=== PATIENT | male | born 1970 | race Caucasian/White ===

== ENCOUNTER 2019-02-12 21:38 | Emergency (ER) | payer OTHER, SELFPAY ==
[2019-02-12 21:51] VITALS: BP 161/91; PULSE 59; RESP 15; TEMP 36.6; O2SAT 100; BMI 30.1
[2019-02-12] MEDS: diazePAM 5 MG TABLET PO (22:16)
[2019-02-12] MEDS: predniSONE 20 MG TABLET 40 MG PO (22:16)
[2019-02-12] MEDS: HYDROCODONE/ACET 5/325 PREPACK 1 BOTTLE MISC (22:16)
--- NOTE | 2019-02-12 22:16 | ED_ITS ---
HPI - Back Pain/Injury General Chief Complaint: Back Pain/Injury Stated Complaint: LEFT LEG PAIN UNABLE TO WALK Time Seen by Provider: 02/12/19 21:40 Source: patient and family Mode of arrival: ambulatory Limitations: no limitations History of Present Illness HPI Narrative: 48-year-old male former smoker presents with a chief complaint of worsening of his known lumbar pain with sciatica. He has had trouble off and on for quite some time and in fact has been going to physical therapy. He has had no prescriptions in many years and this is been cross reference with the [place] prescription service web site. Patient states that he was in his normal state of health until this morning in the bathroom he stepped awkwardly and felt a sudden and severe pain in his lower back with radiation down his left leg. He has some tingling on the top of his left foot but denies any weakness. He has no trouble with bowel or bladder control. He has had no fever or chills and denies any direct trauma. He takes no blood thinners. He has had no foot drop MD Complaint: back pain Onset (ago): hour(s) Duration: constant Similar Symptoms Previously: Yes Location: lumbar spine Severity: moderate Quality: burning, sharp and stabbing Radiation: left leg Relieving factors: immobilization Exacerbating factors: movement and walking Context: bending Associated symptoms: difficulty walking Related Data Previous Rx's Medication Instructions Recorded diazepam [Valium] 5 mg PO BID-QID PRN #10 tab 02/12/19 hydrocodone-acetaminophen 1 tab PO Q4-6H PRN #10 tab 02/12/19 ketorolac 10 mg PO Q6H PRN #14 tab 02/12/19 prednisone 20 mg PO DAILY #5 tab 02/12/19 Allergies Allergy/AdvReac Type Severity Reaction Status Date / Time tramadol Allergy Verified 02/12/19 21:51 Review of Systems Constitutional Denies chills, Denies fever(s), Denies lethargy and Denies weakness Eyes Denies change in vision, Denies eye discharge, Denies irritation and Denies loss of vision ENT Ears, Nose, Mouth, and Throat: Denies change in voice, Denies neck pain and Denies sore throat Cardiovascular Denies chest pain, Denies irregular heart rhythm, Denies lightheadedness, Denies palpitations, Denies dyspnea, Denies dyspnea on exertion and Denies orthopnea Respiratory Denies cough, Denies dyspnea, Denies dyspnea on exertion and Denies wheezing Gastrointestinal Gastrointestinal: Denies abdominal pain, Denies change in bowel habits, Denies diarrhea, Denies nausea and Denies vomiting Genitourinary Denies hematuria, Denies flank pain, Denies urinary incontinence and Denies urinary urgency Musculoskeletal Reports back pain and Denies neck pain Integumentary/Breasts Denies pruritus, Denies erythema, Denies rash and Denies wounds Neurologic Denies confusion, Denies loss of vision and Denies weakness Psychiatric Denies anxiety, Denies confusion, Denies depression, Denies homicidal ideation and Denies suicidal ideation Endocrine Denies palpitations Hematologic/Lymphatic Denies easy bruising Allergic/Immunologic Denies wheezing PFSH Social History Smoking Status: Unknown if ever smoked Social History Smoking Status: Unknown if ever smoked Exam Narrative Exam Narrative: GENERAL: 48M appears stated age, obviously quite uncomfortable laying on his side with left leg extended period HEAD: Atraumatic. Normocephalic. No temporal or scalp tenderness. EYES: Pupils equal round and reactive. Extraocular motions intact. No scleral icterus. No injection or drainage. ENT: Nose without bleeding, purulent drainage or septal hematoma. Throat without erythema, tonsillar hypertrophy or exudate. Uvula midline. Airway patent. NECK: Trachea midline. No JVD or lymphadenopathy. Supple, nontender, no meningeal signs. CARDIOVASCULAR: Regular rate and rhythm without murmurs, gallops, or rubs. RESPIRATORY: Clear to auscultation. Breath sounds equal bilaterally. No wheezes, rales, or rhonchi. GASTROINTESTINAL: Abdomen soft, non-tender, nondistended. No hepato-splen omegaly, or palpable masses. No guarding. EXTREMITIES: No clubbing, cyanosis, or edema. No joint tenderness, effusion, or edema noted. BACK: strapping machine tender but free of any obvious external abnormalities. Patient exam notes decreased range of motion and muscle spasm, but no CVA tenderness, or vertebral point tenderness. There are no symptoms of cauda equina such as saddle anesthesia, and decreased reflexes, decreased sensation or strength. NEURO: AOx3. SKIN: No rash or erythema. Initial Vital Signs Initial Vital Signs: Vital Signs Temperature 97.8 F 02/12/19 21:51 Pulse Rate 59 L 02/12/19 21:51 Respiratory Rate 15 02/12/19 21:51 Blood Pressure 161/91 H 02/12/19 21:51 Pulse Oximetry 100 02/12/19 21:51 Course Orders Ordered: Discontinued Medications Hydrocodone Bitart/Acetaminophen (Vicodin Prepack) 1 bottle MISC SEEINSTR ONE Stop: 02/12/19 22:06 Last Admin: 02/12/19 22:16 Dose: 1 bottle Diazepam (Valium) 5 mg PO NOW ONE Stop: 02/12/19 22:06 Last Admin: 02/12/19 22:16 Dose: 5 mg Ketorolac Tromethamine (Toradol) 60 mg IM NOW ONE Stop: 02/12/19 22:06 Last Admin: 02/12/19 22:17 Dose: 60 mg Prednisone (Deltasone) 40 mg PO NOW ONE Stop: 02/12/19 22:06 Last Admin: 02/12/19 22:16 Dose: 40 mg Vital Signs - 8 hr 02/12/19 21:51 02/12/19 22:46 Temperature 97.8 F Pulse Rate 59 L 65 Respiratory Rate 15 Blood Pressure 161/91 H 120/69 Pulse Oximetry 100 100 MDM - Back Pain/Injury MDM Narrative Medical decision making narrative: Multiple etiologies for patient's symptoms considered including: [Multiple etiologies of back pain considered including; Epidural abscess, cauda equina, mass occupying lesion, and other considered] Patient's symptoms improved or duration of stay with above-stated therapies. Findings and discharge diagnosis discussed with patient/family followed by verbalization of understanding Return precautions discussed with patient/family whom verbalize understanding. Discharge Plan Departure Patient Disposition: Home Clinical Impression: Lumbar radiculopathy Sciatica Qualifiers: Laterality: left Qualified Code(s): M54.32 - Sciatica, left side Discharge Date/Time: 02/12/19 22:47 Interventions: ED Discharge Assessment Last Done: 02/12/19 22:46 Instructions: DI for Back Pain With Sciatica Activity Restrictions/Additional Instructions: You have been prescribed narcotic medications. While on these medications you cannot drive or operate heavy machinery. Additionally you cannot sign legal documents or perform any duties such as this. 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 Please understand that we cannot provide further refills of narcotics or controlled substances through the ED and your pain management will need to be through your Primary Care Provider *You have been diagnosed with [acute on chronic lumbar pain with left-sided sciatica] *What to do: *Take medications as directed *Follow up with your primary care provider in 2-3 days, call for an appointment. Let them know you were seen in the Emergency Department and that we ask that you be seen in follow up *Return to ER if you should have any new, worsening or concerning symptoms, such as [worsening pain, loss of control of her bowel or bladder, weakness in her leg or any other bothersome symptoms] Prescriptions: New hydrocodone-acetaminophen 5-325 mg tablet 1 tab PO Q4-6H PRN (Reason: pain) Qty: 10 RF: 0 prednisone 20 mg tablet 20 mg PO DAILY Qty: 5 RF: 0 ketorolac 10 mg tablet 10 mg PO Q6H PRN (Reason: pain) Qty: 14 RF: 0 diazepam [Valium] 5 mg tablet 5 mg PO BID-QID PRN (Reason: muscle spasm) Qty: 10 RF: 0
[2019-02-12] MEDS: KETOROLAC 60 MG/2 ML VIAL IM (22:17)
[2019-02-12 22:46] VITALS: BP 120/69; PULSE 65; O2SAT 100
== END 2019-02-12 22:47 | disposition home or self-care (01) ==
PROVIDERS: Emergency Provider Emergency Medicine
DX: M54.16 Radiculopathy, lumbar region (principal); M54.30 Sciatica, unspecified side; M79.605 Pain in left leg
CPT/HCPCS: 96372; 99282; 99283; J1885

== ENCOUNTER 2019-02-20 13:12 | Emergency (ER) | payer OTHER, SELFPAY ==
[2019-02-20 13:20] VITALS: BP 143/102; PULSE 70; RESP 18; TEMP 36.9; O2SAT 98; BMI 30.1
--- NOTE | 2019-02-20 16:19 | ED.EXTPRO ---
HPI - Extremity Problem General Chief complaint: Extremity Problem,Nontraumatic Stated complaint: left leg numbness/tingling/pain x8 days Time Seen by Provider: 02/20/19 16:18 Source: patient, family and old records reviewed ([employer] [facility], CT reviewed patient arrived with in hand) Mode of arrival: wheelchair Limitations: no limitations History of Present Illness HPI Narrative: 48-year-old male comes in with complaint of back and hip pain. Patient states started about 8 days ago. With back pain radiating into left lower extremity. There has been some numbness, he did days no weakness but states that it is painful to move the lower extremity as well some tingling particularly over the left calf. Patient denies any loss of bowel or bladder control. Patient has a remote history of a infection in his left hip. Patient states that he went to surgery had drainage and was on IV antibiotics with a PICC line for a period of time he states that this does not feel the same but he does have some pain in hip. He states he had a CT scan of the hip recently which was read as negative. Patient denies any fevers. He has occasionally had some nausea. No vomiting. No other chest pain, shortness of breath abdominal pain. Patient states that the pain is sort of in the back buttock area more on the left. Patient has pain with ambulation. He states that he noticed after getting out of bed when morning. He does not recall any specific trauma or injury or of the sedative motion or heavy lifting. Hugo to his doctor's note this is typical for him and he has not been wanting to work been using a wheelchair at home, he does not typically take pain medications has been require them. Related Data Home Medications Medication Instructions Recorded Confirmed baclofen 10 mg PO TID 02/20/19 02/20/19 cholecalciferol (vitamin D3) 4,000 unit PO DAILY 02/20/19 02/20/19 [Vitamin D3] krill oil 1 tab PO DAILY 02/20/19 02/20/19 loratadine 1 tab PO DAILY 02/20/19 02/20/19 losartan 1 tab PO DAILY 02/20/19 02/20/19 metoprolol succinate [Toprol XL] 1 tab PO DAILY 02/20/19 02/20/19 omeprazole 2 tab PO DAILY 02/20/19 02/20/19 prednisone 40 mg PO DAILY 02/20/19 02/20/19 Previous Rx's Medication Instructions Recorded diazepam [Valium] 5 mg PO BID-QID PRN #10 tab 02/12/19 Allergies Allergy/AdvReac Type Severity Reaction Status Date / Time tramadol Allergy Verified 02/20/19 13:19 Review of Systems Review of Systems ROS Unobtainable: All systems reviewed & are unremarkable except as noted in HPI and below Constitutional Denies chills, Denies fever(s), Denies lethargy and Denies weakness Gastrointestinal Gastrointestinal: Denies abdominal pain, Denies change in bowel habits, Denies fecal incontinence, Denies diarrhea, Denies nausea and Denies vomiting Genitourinary Denies hematuria, Denies flank pain, Denies urinary frequency, Denies urinary incontinence and Denies urinary urgency Musculoskeletal Reports back pain, Reports arthralgias (Left hip), Denies joint swelling, Reports limited range of motion, Denies muscle weakness, Reports numbness (Left calf) and Reports tingling Integumentary/Breasts Denies lesions, Denies non-healing lesions, Denies erythema and Denies rash Neurologic Denies lack of coordination, Denies focal weakness, Reports numbness (Left calf), Reports tingling and Denies weakness [facility] Medical History (Updated 02/20/19 @ 18:06 by Anabel Alvarze DO) Septic arthritis of hip (Resolved) Social History Smoking Status: Unknown if ever smoked Social History (Updated 02/20/19 @ 16:47 by Anabel Alvarez DO) Smoking Status: Unknown if ever smoked alcohol intake: former substance use type: does not use Exam Narrative Exam Narrative: GENERAL: Alert and oriented x three, well-nourished, well-appearing male in moderate distress. HEENT: Head normocephalic, atraumatic, EOMI, pupils reactive, face symmetric, moist mucous membranes NECK: Supple, full range of motion CARDIOVASCULAR: Regular rate and rhythm without murmurs, rubs or gallops. RESPIRATORY: Breath sounds equal bilaterally, no wheezes rales or rhonchi. ABDOMEN: Soft, nontender. Normoactive bowel sounds all 4 quadrants. No guarding or rebound, rigidity, no mass : No CVA tenderness BACK: No cervical, thoracic vertebral point tenderness. Patient has a vertebral tenderness starting at the L2 region and 3 each level down to L5-S1. Patient has decreased range of motion, patient prefers to lay on his side. Patient's gait is not tested No saddle anesthesia. Muscle strength is 5/5 in lower extremities, DTRs are 2/4 right lower extremities, 1/4 left lower extremitiey. Dorsalis pedis and tibialis pulses are 2+ and lower extremities. Sensation is intact in the lower extremities, patient is uncomfortable with palpation with light touch over lower foot on left. EXTREMITIES: Normal range of motion, mildly tender over left hip, no effusion, no erythema, no clubbing or edema. Neurovascularly intact, see above. NEUROLOGICAL: Cranial nerves II through XII grossly intact. Moving all extremities SKIN: Warm, dry, no petechiae, no rashes or lesions. Initial Vital Signs Initial Vital Signs: Vital Signs Temperature 98.5 F 02/20/19 13:20 Pulse Rate 70 02/20/19 13:20 Respiratory Rate 18 02/20/19 13:20 Blood Pressure 143/102 H 02/20/19 13:20 Pulse Oximetry 98 02/20/19 13:20 Course Orders Ordered: ED Orders 02/20/19 16:41 CT lumbar spine wo con Stat CT thoracic spine wo con Stat 02/20/19 16:51 Basic Metabolic Panel Stat C-Reactive Protein Quant Stat Complete Blood Count AUTO DIFF Stat Erythrocyte Sedimentation Rate Stat Discontinued Medications Hydromorphone HCl (Dilaudid) 1 mg IV NOW ONE Stop: 02/20/19 18:17 Last Admin: 02/20/19 18:26 Dose: 1 mg Morphine Sulfate (Morphine) 4 mg IV NOW ONE Stop: 02/20/19 16:42 Last Admin: 02/20/19 17:12 Dose: 4 mg Vital Signs - 8 hr 02/20/19 13:20 02/20/19 16:45 02/20/19 18:26 Temperature 98.5 F Pulse Rate 70 64 66 Respiratory Rate 18 17 15 Blood Pressure 143/102 H Blood Pressure [Left Arm] 140/90 144/99 H Pulse Oximetry 98 98 98 MDM - Extremity (Nontraumatic) Lab Data Result diagrams: 02/20/19 16:51 02/20/19 16:51 Lab Results 02/20/19 02/20/19 Range/Units 16:51 16:51 WBC 6.6 (4.5-11.0) X10^3/uL RBC 5.74 (4.5-5.9) X10^6/uL Hgb 17.4 (13.5-17.5) g/dL Hct 51.8 (41-53) % MCV 90.2 (80-100) fL MCH 30.2 (26-34) PG MCHC 33.5 (30-36) % RDW 13.2 (11.6-14.8) % Plt Count 221 (150-400) X10^3/uL Neut % (Auto) 53.9 (50-75) % Lymph % (Auto) 35.8 (25-40) % Tripp % (Auto) 7.9 (3-14) % Eos % (Auto) 2.0 (2-4) % Baso % (Auto) 0.4 (0-2) % Neut # (Auto) 3600 (2475-9504) /uL Lymph # (Auto) 2400 (1306-1337) /uL Tripp # (Auto) 500 (0-900) /uL Eos # (Auto) 100 (0-450) /uL Baso # (Auto) 0 (0-100) /uL ESR 7 (0-15) MM/HR Sodium 142 (137-145) mmol/L Potassium 4.0 (3.4-5.1) mmol/L Chloride 102 (98-107) mmol/L Carbon Dioxide 30 (22-32) mmol/L BUN 16 (9-20) mg/dL Creatinine 1.10 (0.66-1.25) mg/dL Estimated GFR > 60.0 (>60) mL/min BUN/Creatinine Ratio 14.5 (6-22) Glucose 100 (70-100) mg/dL Calcium 9.0 (8.4-10.2) mg/dL C-Reactive Protein < 0.5 (<1.0) mg/dL Imaging Data T spine CT: Radiologist's impression: [address] [address] [address] Scan Report Signed Patient: Edd Park LMR#: [id number] : 1970Acct:[id number] Age/Sex: 48 / MDate of Service: 02/20/19 Loc: ED Accession Number: [id number] Procedure: CT thoracic spine wo con Ordering Provider: Anabel Alvarez D.O. PROCEDURE: CT THORACIC SPINE WO CON INDICATIONS: L2-L5 pain, hx of septic hip in past. TECHNIQUE: Noncontrast 3 mm thick sections acquired through the region of interest in the thoracic spine. Sagittal and coronal reformats were then constructed. For radiation dose reduction, the following was used: automated exposure control. COMPARISON: [facility], CT, CT LUMBAR SPINE WO CON, 02/20/2019, 16:55. FINDINGS: Image quality: Excellent. Bones: There is normal overall bony alignment. No acute vertebral body compression fractures. No suspicious sclerotic or lytic bony lesions. Central spinal canal is of normal overall caliber. Mild lower thoracic spine degenerative changes are seen. Soft tissues: No paravertebral masses or hematomas. Visualized posteromedial lungs appear clear. IMPRESSION: Mild degenerative changes, without suspicious abnormalities. Dictated by: Jani Segovia M.D. on 02/20/2019 at 16:34 Approved by: Jani Segovia M.D. on 02/20/2019 at 16:[address] [facility] [address]: Radiologist's impression: Edd Park 48 M 1970 [place] [address] CT Scan Report Signed Patient: Edd Park LMR#: [id number] : 1970Acct:[id number] Age/Sex: 48 / MDate of Service: 02/20/19 Loc: ED Accession Number: [id number] Procedure: CT lumbar spine wo con Ordering Provider: Anabel Alvarez D.O. PROCEDURE: CT LUMBAR SPINE WO CON INDICATIONS: lumbar pain, L2-L5, no trauma, hx septic hip TECHNIQUE: Noncontrast 3 mm thick sections acquired from the T12 level to the sacrum. Sagittal and coronal reformats were constructed. For radiation dose reduction, the following was used: automated exposure control. COMPARISON: [facility], CT, CT THORACIC SPINE WO CON, 02/20/2019, 16:55. FINDINGS: Image quality: Excellent. Bones: No acute vertebral body compression fractures. No suspicious lytic or blastic bony lesions. Central spinal caliber is of normal overall caliber. Minimal levoconvex scoliotic curvature is seen. Minimally displaced pars defects are seen at the L2 level, yet without related anterolisthesis at the L2-L3 level. Pars defects are also seen at L5, with associated grade 1 anterolisthesis at L5-S1. T12-L1: Normal. L1-L2: Normal. L2-L3: The disc height is well-preserved. Moderate disc bulge is seen, which is eccentric to the left. There is moderate bilateral neural foraminal narrowing seen, left greater than right. [id number] central canal narrowing is seen. L3-L4: The disc height is well-preserved. Mild generalized disc bulge is seen. Mild bilateral neural foraminal narrowing is seen. L4-L5: Mild loss of disc height is seen. Moderate generalized disc bulge is seen. Moderate bilateral neural foraminal narrowing is seen, left worse than right. Moderate central canal narrowing is seen. L5-S1: Grade 1 anterolisthesis is seen at this level. Moderate loss of disc height is seen. Mild facet hypertrophy is seen. There is moderate to severe bilateral neural foraminal narrowing seen. There is a degree of compression seen upon the exiting nerve roots. Moderate central canal narrowing is seen. Soft tissues: No retroperitoneal masses or hematomas. Visualized aorta is normal in caliber. A mild periumbilical hernia is seen, containing fat. 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 There is moderate loss of disc height at this level. There is also moderate to severe bilateral neural foraminal narrowing seen and compression upon the exiting bilateral L5 nerve roots. No suspicious abnormalities are seen of the endplates. If there is strong clinical concern for discitis or osteomyelitis, then please consider a dedicated lumbar spine MRI, performed without and with contrast for further evaluation (assuming that there is no contraindication). Pars defects are also seen at the L2 level, without associated anterolisthesis of L2-L3. Multiple levels of degenerative change are seen, which are more prominent than would be expected for a patient of this age. Incidental note is made of: Fat containing periumbilical hernia Dictated by: Jani Segovia M.D. on 02/20/2019 at 16:38 Approved by: Jani Segovia M.D. on 02/20/2019 at 16:44 [facility] Narrative Medical decision making narrative: I do not have any MRI availability today. The patient does him some lower lumbar tenderness also close in the thoracic spine. With patient's history of septic arthritis I would give it at minimum CT of the thoracic and lumbar spine. MRI would be purple but is unavailable. I included CBC, BMP, ESR and CRP in lab work. Patient did have a CT of his hip which is mildly tender but he is much more tender on his lower back. If his ESR and CRP are elevated with normal CT imaging of the lower back then may redirected to further evaluation or MRI. Morphine was ordered for pain, patient states he is allergic to tramadol and gets hives but states he does fine with other narcotics. Dr. Parra from [facility] called report to charge nurse, I spoke with Dr. Parra we reviewed patient's lab work which included CBC, BMP ESR and CRP which were all normal also I was unable to obtain MRI but CT of T and L-spine showed some mild chronic changes in the T-spine and L-spine changes actually looked very similar to findings on prior MRI from December 01, 2018. Was able to obtain report from [facility]. I reviewed these with Dr. Coughlin. She states they can get an MRI as an outpatient she can go and put the order in so this could be noted shortly. Patient and I discussed at this time will be able to facilitate an MRI faster the patient would likely be more comfortable at home he does not have any red flag symptoms at this time so plan for follow-up. She also has a pain management referral. Discharge Plan Departure Patient Disposition: Home Clinical Impression: Lumbar radiculopathy Discharge Date/Time: 02/20/19 18:42 Interventions: ED Discharge Assessment Last Done: 02/20/19 18:42 Instructions: DI for Lumbar Radiculopathy Activity Restrictions/Additional Instructions: Follow-up with Dr. Parra on Friday. Call the office for an appointment. Dr. Parra is also planning on ordering your MRI to faciliate further workup this week. You may continue medications as prescribed. You can take gabapentin, you may increase from 1 tablet three times daily to two tablets three times daily but this can be increased with you and Dr. Coughlin. You may take oxycodone in combination with the ketorolac or meloxicam. Return to the emergency department for fevers greater than 100.4, rapidly increasing pain, loss of bowel or bladder control or urinary retention, saddle anesthesia or loss of sensation in the groin new weakness, inability to lift or move your extremity or other new or concerning symptoms. Prescriptions: No Action diazepam [Valium] 5 mg tablet 5 mg PO BID-QID PRN (Reason: muscle spasm) Qty: 10 RF: 0 metoprolol succinate [Toprol XL] 50 mg tablet extended release 24 hr 1 tab PO DAILY RF: 0 baclofen 10 mg Tablet 10 mg PO TID RF: 0 losartan 25 mg tablet 1 tab PO DAILY RF: 0 omeprazole 20 mg capsule,delayed release(DR/EC) 2 tab PO DAILY RF: 0 loratadine 10 mg tablet 1 tab PO DAILY RF: 0 cholecalciferol (vitamin D3) [Vitamin D3] 2,000 unit Capsule 4,000 unit PO DAILY RF: 0 krill oil 500 mg Capsule 1 tab PO DAILY RF: 0 prednisone 20 mg tablet 40 mg PO DAILY RF: 0
--- NOTE | 2019-02-20 16:41 | DI.CT.S_ITS ---
PROCEDURE: CT LUMBAR SPINE WO CON INDICATIONS: lumbar pain, L2-L5, no trauma, hx septic hip TECHNIQUE: Noncontrast 3 mm thick sections acquired from the T12 level to the sacrum. Sagittal and coronal reformats were constructed. For radiation dose reduction, the following was used: automated exposure control. COMPARISON: [facility], CT, CT THORACIC SPINE WO CON, 02/20/2019, 16:55. FINDINGS: Image quality: Excellent. Bones: No acute vertebral body compression fractures. No suspicious lytic or blastic bony lesions. Central spinal caliber is of normal overall caliber. Minimal levoconvex scoliotic curvature is seen. Minimally displaced pars defects are seen at the L2 level, yet without related anterolisthesis at the L2-L3 level. Pars defects are also seen at L5, with associated grade 1 anterolisthesis at L5-S1. T12-L1: Normal. L1-L2: Normal. L2-L3: The disc height is well-preserved. Moderate disc bulge is seen, which is eccentric to the left. There is moderate bilateral neural foraminal narrowing seen, left greater than right. [id number] central canal narrowing is seen. L3-L4: The disc height is well-preserved. Mild generalized disc bulge is seen. Mild bilateral neural foraminal narrowing is seen. L4-L5: Mild loss of disc height is seen. Moderate generalized disc bulge is seen. Moderate bilateral neural foraminal narrowing is seen, left worse than right. Moderate central canal narrowing is seen. L5-S1: Grade 1 anterolisthesis is seen at this level. Moderate loss of disc height is seen. Mild facet hypertrophy is seen. There is moderate to severe bilateral neural foraminal narrowing seen. There is a degree of compression seen upon the exiting nerve roots. Moderate central canal narrowing is seen. Soft tissues: No retroperitoneal masses or hematomas. Visualized aorta is normal in caliber. A mild periumbilical hernia is seen, containing fat. 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 There is moderate loss of disc height at this level. There is also moderate to severe bilateral neural foraminal narrowing seen and compression upon the exiting bilateral L5 nerve roots. No suspicious abnormalities are seen of the endplates. If there is strong clinical concern for discitis or osteomyelitis, then please consider a dedicated lumbar spine MRI, performed without and with contrast for further evaluation (assuming that there is no contraindication). Pars defects are also seen at the L2 level, without associated anterolisthesis of L2-L3. Multiple levels of degenerative change are seen, which are more prominent than would be expected for a patient of this age. Incidental note is made of: Fat containing periumbilical hernia Dictated by: Jani Segovia M.D. on 02/20/2019 at 16:38 Approved by: Jani Segovia M.D. on 02/20/2019 at 16:44
--- NOTE | 2019-02-20 16:41 | DI.CT.S_ITS ---
PROCEDURE: CT THORACIC SPINE WO CON INDICATIONS: L2-L5 pain, hx of septic hip in past. TECHNIQUE: Noncontrast 3 mm thick sections acquired through the region of interest in the thoracic spine. Sagittal and coronal reformats were then constructed. For radiation dose reduction, the following was used: automated exposure control. COMPARISON: [facility], CT, CT LUMBAR SPINE WO CON, 02/20/2019, 16:55. FINDINGS: Image quality: Excellent. Bones: There is normal overall bony alignment. No acute vertebral body compression fractures. No suspicious sclerotic or lytic bony lesions. Central spinal canal is of normal overall caliber. Mild lower thoracic spine degenerative changes are seen. Soft tissues: No paravertebral masses or hematomas. Visualized posteromedial lungs appear clear. IMPRESSION: Mild degenerative changes, without suspicious abnormalities. Dictated by: Jani Segovia M.D. on 02/20/2019 at 16:34 Approved by: Jani Segovia M.D. on 02/20/2019 at 16:37
[2019-02-20 16:45] VITALS: BP 140/90; PULSE 64; RESP 17; O2SAT 98
--- NOTE | 2019-02-20 16:51 | ED_ITS ---
HPI - Extremity Problem General Chief complaint: Extremity Problem,Nontraumatic Stated complaint: left leg numbness/tingling/pain x8 days Time Seen by Provider: 02/20/19 16:18 Source: patient, family and old records reviewed ([employer] [facility], CT reviewed patient arrived with in hand) Mode of arrival: wheelchair Limitations: no limitations History of Present Illness HPI Narrative: 48-year-old male comes in with complaint of back and hip pain. Patient states started about 8 days ago. With back pain radiating into left lower extremity. There has been some numbness, he did days no weakness but states that it is painful to move the lower extremity as well some tingling particularly over the left calf. Patient denies any loss of bowel or bladder control. Patient has a remote history of a infection in his left hip. Patient states that he went to surgery had drainage and was on IV antibiotics with a PICC line for a period of time he states that this does not feel the same but he does have some pain in hip. He states he had a CT scan of the hip recently which was read as negative. Patient denies any fevers. He has occasionally had some nausea. No vomiting. No other chest pain, shortness of breath abdominal pain. Patient states that the pain is sort of in the back buttock area more on the left. Patient has pain with ambulation. He states that he noticed after getting out of bed when morning. He does not recall any specific trauma or injury or of the sedative motion or heavy lifting. [place] to his doctor's note this is typical for him and he has not been wanting to work been using a wheelchair at home, he does not typically take pain medications has been require them. Related Data Home Medications Medication Instructions Recorded Confirmed baclofen 10 mg PO TID 02/20/19 02/20/19 cholecalciferol (vitamin D3) 4,000 unit PO DAILY 02/20/19 02/20/19 [Vitamin D3] krill oil 1 tab PO DAILY 02/20/19 02/20/19 loratadine 1 tab PO DAILY 02/20/19 02/20/19 losartan 1 tab PO DAILY 02/20/19 02/20/19 metoprolol succinate [Toprol XL] 1 tab PO DAILY 02/20/19 02/20/19 omeprazole 2 tab PO DAILY 02/20/19 02/20/19 prednisone 40 mg PO DAILY 02/20/19 02/20/19 Previous Rx's Medication Instructions Recorded diazepam [Valium] 5 mg PO BID-QID PRN #10 tab 02/12/19 Allergies Allergy/AdvReac Type Severity Reaction Status Date / Time tramadol Allergy Verified 02/20/19 13:19 Review of Systems Review of Systems ROS Unobtainable: All systems reviewed & are unremarkable except as noted in HPI and below Constitutional Denies chills, Denies fever(s), Denies lethargy and Denies weakness Gastrointestinal Gastrointestinal: Denies abdominal pain, Denies change in bowel habits, Denies fecal incontinence, Denies diarrhea, Denies nausea and Denies vomiting Genitourinary Denies hematuria, Denies flank pain, Denies urinary frequency, Denies urinary incontinence and Denies urinary urgency Musculoskeletal Reports back pain, Reports arthralgias (Left hip), Denies joint swelling, Reports limited range of motion, Denies muscle weakness, Reports numbness (Left calf) and Reports tingling Integumentary/Breasts Denies lesions, Denies non-healing lesions, Denies erythema and Denies rash Neurologic Denies lack of coordination, Denies focal weakness, Reports numbness (Left calf), Reports tingling and Denies weakness [facility] Medical History (Updated 02/20/19 @ 18:06 by Anabel Alvarez DO) Septic arthritis of hip (Resolved) Social History Smoking Status: Unknown if ever smoked Social History (Updated 02/20/19 @ 16:47 by Anabel Alvarez DO) Smoking Status: Unknown if ever smoked alcohol intake: former substance use type: does not use Exam Narrative Exam Narrative: GENERAL: Alert and oriented x three, well-nourished, well-ap pearing male in moderate distress. HEENT: Head normocephalic, atraumatic, EOMI, pupils reactive, face symmetric, moist mucous membranes NECK: Supple, full range of motion CARDIOVASCULAR: Regular rate and rhythm without murmurs, rubs or gallops. RESPIRATORY: Breath sounds equal bilaterally, no wheezes rales or rhonchi. ABDOMEN: Soft, nontender. Normoactive bowel sounds all 4 quadrants. No guardin g or rebound, rigidity, no mass : No CVA tenderness BACK: No cervical, thoracic vertebral point tenderness. Patient has a vertebral tenderness starting at the L2 region and 3 each level down to L5-S1. Patient has decreased range of motion, patient prefers to lay on his side. Patient's gait is not tested No saddle anesthesia. Muscle strength is 5/5 in lower extremities, DTRs are 2/4 right lower extremities, 1/4 left lower extremitiey. Dorsalis pedis and tibialis pulses are 2+ and lower extremities. Sensation is intact in the lower extremities, patient is uncomfortable with palpation with light touch over lower foot on left. EXTREMITIES: Normal range of motion, mildly tender over left hip, no effusion, no erythema, no clubbing or edema. Neurovascularly intact, see above. NEUROLOGICAL: Cranial nerves II through XII grossly intact. Moving all extremities SKIN: Warm, dry, no petechiae, no rashes or lesions. Initial Vital Signs Initial Vital Signs: Vital Signs Temperature 98.5 F 02/20/19 13:20 Pulse Rate 70 02/20/19 13:20 Respiratory Rate 18 02/20/19 13:20 Blood Pressure 143/102 H 02/20/19 13:20 Pulse Oximetry 98 02/20/19 13:20 Course Orders Ordered: ED Orders 02/20/19 16:41 CT lumbar spine wo con Stat CT thoracic spine wo con Stat 02/20/19 16:51 Basic Metabolic Panel Stat C-Reactive Protein Quant Stat Complete Blood Count AUTO DIFF Stat Erythrocyte Sedimentation Rate Stat Discontinued Medications Hydromorphone HCl (Dilaudid) 1 mg IV NOW ONE Stop: 02/20/19 18:17 Last Admin: 02/20/19 18:26 Dose: 1 mg Morphine Sulfate (Morphine) 4 mg IV NOW ONE Stop: 02/20/19 16:42 Last Admin: 02/20/19 17:12 Dose: 4 mg Vital Signs - 8 hr 02/20/19 13:20 02/20/19 16:45 02/20/19 18:26 Temperature 98.5 F Pulse Rate 70 64 66 Respiratory Rate 18 17 15 Blood Pressure 143/102 H Blood Pressure [Left Arm] 140/90 144/99 H Pulse Oximetry 98 98 98 MDM - Extremity (Nontraumatic) Lab Data Result diagrams: 02/20/19 16:51 02/20/19 16:51 Lab Results 02/20/19 02/20/19 Range/Units 16:51 16:51 WBC 6.6 (4.5-11.0) X10^3/uL RBC 5.74 (4.5-5.9) X10^6/uL Hgb 17.4 (13.5-17.5) g/dL Hct 51.8 (41-53) % MCV 90.2 (80-100) fL MCH 30.2 (26-34) PG MCHC 33.5 (30-36) % RDW 13.2 (11.6-14.8) % Plt Count 221 (150-400) X10^3/uL Neut % (Auto) 53.9 (50-75) % Lymph % (Auto) 35.8 (25-40) % Wake % (Auto) 7.9 (3-14) % Eos % (Auto) 2.0 (2-4) % Baso % (Auto) 0.4 (0-2) % Neut # (Auto) 3600 (6077-4917) /uL Lymph # (Auto) 2400 (3681-8733) /uL Wake # (Auto) 500 (0-900) /uL Eos # (Auto) 100 (0-450) /uL Baso # (Auto) 0 (0-100) /uL ESR 7 (0-15) MM/HR Sodium 142 (137-145) mmol/L Potassium 4.0 (3.4-5.1) mmol/L Chloride 102 (98-107) mmol/L Carbon Dioxide 30 (22-32) mmol/L BUN 16 (9-20) mg/dL Creatinine 1.10 (0.66-1.25) mg/dL Estimated GFR > 60.0 (>60) mL/min BUN/Creatinine Ratio 14.5 (6-22) Glucose 100 (70-100) mg/dL Calcium 9.0 (8.4-10.2) mg/dL C-Reactive Protein < 0.5 (<1.0) mg/dL Imaging Data T spine CT: Radiologist's impression: [address] [address] [address] Scan Report Signed Patient: Edd Park LMR#: [id number] : 1970Acct:[id number] Age/Sex: 48 / MDate of Service: 02/20/19 Loc: ED Accession Number: [id number] Procedure: CT thoracic spine wo con Ordering Provider: Anabel Alvarez D.O. PROCEDURE: CT THORACIC SPINE WO CON INDICATIONS: L2-L5 pain, hx of septic hip in past. TECHNIQUE: Noncontrast 3 mm thick sections acquired through the region of interest in the thoracic spine. Sagittal and coronal reformats were then constructed. For radiation dose reduction, the following was used: automated exposure control. COMPARISON: [facility], CT, CT LUMBAR SPINE WO CON, 02/20/2019, 16:55. FINDINGS: Image quality: Excellent. Bones: There is normal overall bony alignment. No acute vertebral body compression fractures. No suspicious sclerotic or lytic bony lesions. Central spinal canal is of normal overall caliber. Mild lower thoracic spine degenerative changes are seen. Soft tissues: No paravertebral masses or hematomas. Visualized posteromedial lungs appear clear. IMPRESSION: Mild degenerative changes, without suspicious abnormalities. Dictated by: Jani Segovia M.D. on 02/20/2019 at 16:34 Approved by: Jani Segovia M.D. on 02/20/2019 at 16:[address]: Radiologist's impression: Edd Park 48 M 1970 [place] [address] CT Scan Report Signed Patient: Edd Park LMR#: [id number] : 1970Acct:[id number] Age/Sex: 48 / MDate of Service: 02/20/19 Loc: ED Accession Number: [id number] Procedure: CT lumbar spine wo con Ordering Provider: Anabel Alvarez D.O. PROCEDURE: CT LUMBAR SPINE WO CON INDICATIONS: lumbar pain, L2-L5, no trauma, hx septic hip TECHNIQUE: Noncontrast 3 mm thick sections acquired from the T12 level to the sacrum. Sagittal and coronal reformats were constructed. For radiation dose reduction, the following was used: automated exposure control. COMPARISON: [facility], CT, CT THORACIC SPINE WO CON, 02/20/2019, 16:55. FINDINGS: Image quality: Excellent. Bones: No acute vertebral body compression fractures. No suspicious lytic or blastic bony lesions. Central spinal caliber is of normal overall caliber. Minimal levoconvex scoliotic curvature is seen. Minimally displaced pars defects are seen at the L2 level, yet without related anterolisthesis at the L2-L3 level. Pars defects are also seen at L5, with associated grade 1 anterolisthesis at L5-S1. T12-L1: Normal. L1-L2: Normal. L2-L3: The disc height is well-preserved. Moderate disc bulge is seen, which is eccentric to the left. There is moderate bilateral neural foraminal narrowing seen, left greater than right. Ggji-ah-[id number] central canal narrowing is seen. L3-L4: The disc height is well-preserved. Mild generalized disc bulge is seen. Mild bilateral neural foraminal narrowing is seen. L4-L5: Mild loss of disc height is seen. Moderate generalized disc bulge is seen. Moderate bilateral neural foraminal narrowing is seen, left worse than right. Moderate central canal narrowing is seen. L5-S1: Grade 1 anterolisthesis is seen at this level. Moderate loss of disc height is seen. Mild facet hypertrophy is seen. There is moderate to severe bilateral neural foraminal narrowing seen. There is a degree of compression seen upon the exiting nerve roots. Moderate central canal narrowing is seen. Soft tissues: No retroperitoneal masses or hematomas. Visualized aorta is normal in caliber. A mild periumbilical hernia is seen, containing fat. 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 There is moderate loss of disc height at this level. There is also moderate to severe bilateral neural foraminal narrowing seen and compression upon the exiting bilateral L5 nerve roots. No suspicious abnormalities are seen of the endplates. If there is strong clinical concern for discitis or osteomyelitis, then please consider a dedicated lumbar spine MRI, performed without and with contrast for further evaluation (assuming that there is no contraindication). Pars defects are also seen at the L2 level, without associated anterolisthesis of L2-L3. Multiple levels of degenerative change are seen, which are more prominent than would be expected for a patient of this age. Incidental note is made of: Fat containing periumbilical hernia Dictated by: Jani Segovia M.D. on 02/20/2019 at 16:38 Approved by: Jani Segovia M.D. on 02/20/2019 at 16:44 MDM Narrative Medical decision making narrative: I do not have any MRI availability today. The patient does him some lower lumbar tenderness also close in the thoracic spine. With patient's history of septic arthritis I would give it at minimum CT of the thoracic and lumbar spine. MRI would be purple but is unavailable. I included CBC, BMP, ESR and CRP in lab work. Patient did have a CT of his hip which is mildly tender but he is much more tender on his lower back. If his ESR and CRP are elevated with normal CT imaging of the lower back then may redirected to further evaluation or MRI. Morphine was ordered for pain, patient states he is allergic to tramadol and gets hives but states he does fine with other narcotics. Dr. Parra from [facility] called report to charge nurse, I spoke with Dr. Parra we reviewed patient's lab work which included CBC, BMP ESR and CRP which were all normal also I was unable to obtain MRI but CT of T and L- spine showed some mild chronic changes in the T-spine and L-spine changes actually looked very similar to findings on prior MRI from December 01, 2018. Was able to obtain report from [facility]. I reviewed these with Dr. Coughlin. She states they can get an MRI as an outpatient she can go and put the order in so this could be noted shortly. Patient and I discussed at this time will be able to facilitate an MRI faster the patient would likely be more comfortable at home he does not have any red flag symptoms at this time so plan for follow-up. She also has a pain management referral. Discharge Plan Departure Patient Disposition: Home Clinical Impression: Lumbar radiculopathy Discharge Date/Time: 02/20/19 18:42 Interventions: ED Discharge Assessment Last Done: 02/20/19 18:42 Instructions: DI for Lumbar Radiculopathy Activity Restrictions/Additional Instructions: Follow-up with Dr. Parra on Friday. Call the office for an appointment. Dr. Parra is also planning on ordering your MRI to faciliate further workup this week. You may continue medications as prescribed. You can take gabapentin, you may increase from 1 tablet three times daily to two tablets three times daily but this can be increased with you and Dr. Coughlin. You may take oxycodone in combination with the ketorolac or meloxicam. Return to the emergency department for fevers greater than 100.4, rapidly increasing pain, loss of bowel or bladder control or urinary retention, saddle anesthesia or loss of sensation in the groin new weakness, inability to lift or move your extremity or other new or concerning symptoms. Prescriptions: No Action diazepam [Valium] 5 mg tablet 5 mg PO BID-QID PRN (Reason: muscle spasm) Qty: 10 RF: 0 metoprolol succinate [Toprol XL] 50 mg tablet extended release 24 hr 1 tab PO DAILY RF: 0 baclofen 10 mg Tablet 10 mg PO TID RF: 0 losartan 25 mg tablet 1 tab PO DAILY RF: 0 omeprazole 20 mg capsule,delayed release(DR/EC) 2 tab PO DAILY RF: 0 loratadine 10 mg tablet 1 tab PO DAILY RF: 0 cholecalciferol (vitamin D3) [Vitamin D3] 2,000 unit Capsule 4,000 unit PO DAILY RF: 0 krill oil 500 mg Capsule 1 tab PO DAILY RF: 0 prednisone 20 mg tablet 40 mg PO DAILY RF: 0
[2019-02-20 17:11] LABS: Add Manual Diff / Slide Review NO; Basophils Absolute Auto 0 /uL (0-100); Basophils Percent Auto 0.4 % (0-2); Eosinophils Absolute Auto 100 /uL (0-450); Hematocrit 51.8 % (41-53); Hemoglobin 17.4 g/dL (13.5-17.5); Lymphocytes Absolute Auto 2400 /uL (1100-4500); Lymphocytes Percent Auto 35.8 % (25-40); Mean Corpuscular HGB Conc 33.5 % (30-36); Mean Corpuscular Hemoglobin 30.2 PG (26-34); Mean Corpuscular Volume 90.2 fL (80-100); Monocytes Absolute Auto 500 /uL (0-900); Monocytes Percent Auto 7.9 % (3-14); Neutrophils Absolute Auto 3600 /uL (1500-7000); Neutrophils Percent Auto 53.9 % (50-75); Platelet Count 221 X10^3/uL (150-400); Red Blood Cell Count 5.74 X10^6/uL (4.5-5.9); Red Cell Distribution Width 13.2 % (11.6-14.8); White Blood Cell Count 6.6 X10^3/uL (4.5-11.0)
[2019-02-20] MEDS: MORPHINE 4 MG/ML INJ IV (17:12)
[2019-02-20 17:23] LABS: BUN Creatinine Ratio 14.5 (6-22); Blood Urea Nitrogen 16 mg/dL (9-20); Carbon Dioxide 30 mmol/L (22-32); Chloride 102 mmol/L (98-107); Estimated Glomerular Filt Rate > 60.0 mL/min (>60); Glucose 100 mg/dL (70-100); HEMOLYSIS < 15 (0-50); Sodium 142 mmol/L (137-145)
[2019-02-20 17:26] LABS: C-Reactive Protein Quant < 0.5 mg/dL (<1.0)
[2019-02-20 17:41] LABS: Erythrocyte Sedimentation Rate 7 MM/HR (0-15)
[2019-02-20 18:26] VITALS: BP 144/99; PULSE 66; RESP 15; O2SAT 98
[2019-02-20] MEDS: HYDROMORPHONE 1 MG INJ IV (18:26)
== END 2019-02-20 18:42 | disposition home or self-care (01) ==
PROVIDERS: Emergency Provider Emergency Medicine
DX: M54.16 Radiculopathy, lumbar region (principal); M79.662 Pain in left lower leg; R20.0 Anesthesia of skin
CPT/HCPCS: 36591; 72128; 72131; 80048; 85025; 85651; 86140; 96374; 96375; 99282; 99284; J1170; J2270

== ENCOUNTER → 2019-02-26 13:55 | Outpatient (CLI) | payer OTHER, SELFPAY ==
--- NOTE | 2019-02-26 | DI.MRI.S_ITS ---
PROCEDURE: MR HIP LT WO/W CON INDICATIONS: Radiculopathy, lumbar region TECHNIQUE: Noncontrast coronal T1 spin echo and STIR through the bony pelvis. Coronal and axial T2 fast spin echo with fat saturation, axial T1 spin echo with fat saturation, sagittal T1 spin echo, and oblique axial T2 fast spin echo with fat saturation through the hip. Post-contrast axial, coronal, and sagittal spin echo with fat saturation through the hip. COMPARISON: None. FINDINGS: Image quality: Excellent. Bones and joints: No suspicious osseous enhancement. Mild left hip joint osteoarthritic changes are seen with superior joint space narrowing, subchondral sclerosis and marginal osteophyte formation. Study is slightly degraded secondary to patient motion. Multiple sequences were repeated No intraosseous lesions or fractures. No avascular necrosis of the femoral heads. The visualized lower lumbar spine appears normally aligned. Tendons and ligaments: The gluteus medius and minimus tendons appear intact, without associated muscle atrophy. The nearby proximal iliotibial band also appears intact. The iliopsoas tendon appears intact, without adjacent bursal fluid collections or evidence for impingement syndrome. The origin of the hamstring tendon is intact at the ischial tuberosity, as well as the associated sacrotuberous ligament. The straight and reflected heads of the rectus femoris muscle origin appear intact, as well as the conjoint tendon. The ligamentum teres appears intact where visualized. Labrum and cartilage: Any absence of intra-articular contrast, there is subtle signal abnormality involving superior labrum suggestive of focal superior labral tear. The alpha angle of the femur is within normal limits at less than 55 degrees. Soft tissues: No suspicious soft tissue enhancement. Visualized muscles demonstrate normal bulk and internal signal. Quadratus femoris muscle demonstrates no internal edema to suggest ischiofemoral impingement. The proximal sciatic neurovascular bundle appears normal adjacent to the hamstring tendons. No free pelvic fluid. Bladder wall thickness is normal. Genitourinary structures and bowel loops appear normal where visualized. IMPRESSION: 1. Mild left hip joint osteoarthritic changes. No fracture or dislocation. No evidence of avascular necrosis. No abnormal intraosseous enhancement. 2. Finding is suspicious for focal left hip superior labral tear in the absence of intra-articular contrast. 3. No muscle or tendon signal abnormality. No area of abnormal contrast enhancement. Dictated by: Kyle Pope M.D. on 02/26/2019 at 15:50 Approved by: Kyle Pope M.D. on 02/26/2019 at 16:12
== END ==
PROVIDERS: PCP Family Medicine; Visit Provider Family Medicine
DX: M54.16 Radiculopathy, lumbar region (principal); M25.552 Pain in left hip
CPT/HCPCS: 73723; A9579

== ENCOUNTER → 2019-03-10 14:03 | Outpatient (CLI) | payer OTHER, SELFPAY ==
[2019-03-10 14:36] LABS: Add Manual Diff / Slide Review NO; Basophils Absolute Auto 0 /uL (0-100); Basophils Percent Auto 0.5 % (0-2); Eosinophils Absolute Auto 300 /uL (0-450); Eosinophils Percent Auto 5.2 % (2-4); Hematocrit 46.1 % (41-53); Hemoglobin 16.2 g/dL (13.5-17.5); Lymphocytes Absolute Auto 1600 /uL (1100-4500); Lymphocytes Percent Auto 32.5 % (25-40); Mean Corpuscular HGB Conc 35.1 % (30-36); Mean Corpuscular Hemoglobin 31.4 PG (26-34); Mean Corpuscular Volume 89.4 fL (80-100); Monocytes Absolute Auto 300 /uL (0-900); Monocytes Percent Auto 7.1 % (3-14); Neutrophils Absolute Auto 2700 /uL (1500-7000); Neutrophils Percent Auto 54.7 % (50-75); Platelet Count 190 X10^3/uL (150-400); Red Blood Cell Count 5.16 X10^6/uL (4.5-5.9); Red Cell Distribution Width 13.3 % (11.6-14.8); White Blood Cell Count 4.9 X10^3/uL (4.5-11.0)
[2019-03-10 15:50] LABS: BUN Creatinine Ratio 11.8 (6-22); Blood Urea Nitrogen 13 mg/dL (9-20); Calcium 9.8 mg/dL (8.4-10.2); Carbon Dioxide 32 mmol/L (22-32); Chloride 104 mmol/L (98-107); Estimated Glomerular Filt Rate > 60.0 mL/min (>60); Glucose 98 mg/dL (70-100); HEMOLYSIS < 15 (0-50); Potassium 4.1 mmol/L (3.4-5.1); Sodium 142 mmol/L (137-145)
== END ==
PROVIDERS: PCP Family Medicine; Visit Provider Orthopaedic Surgery Orthopaedic Surgery of the Spine
DX: Z01.818 Encounter for other preprocedural examination (principal)
CPT/HCPCS: 36415; 80048; 85025

== ENCOUNTER 2019-03-19 11:33 | Inpatient (IN) | payer OTHER, SELFPAY ==
[2019-03-15 08:42] VITALS: BMI 30.1
[2019-03-19] VITALS (17 sets, daily range): BP systolic 121–174; BP diastolic 76–112; PULSE 60–91; RESP 10–18; TEMP 35.8–37.1; O2SAT 16–100; BMI 30.1
--- NOTE | 2019-03-19 | DI.RAD.S_ITS ---
PROCEDURE: XR LUMBAR SPINE 2-3V INDICATIONS: L5-S1 TLIF TECHNIQUE: Fluoroscopic images were obtained during an operative procedure and submitted for interpretation following the completion of the procedure. COMPARISON: [facility], [place], CT LUMBAR SPINE WO CON, 02/20/2019, 16:55. FINDINGS: These fluoroscopic images were performed for intraoperative localization. On these images, bilateral pedicle screws are seen at L5 and S1. The screws appear well placed. Vertical fixation rods are seen. Disc spacers are seen. Please correlate with intraoperative findings. IMPRESSION: Normal intraoperative examination. Dictated by: Jani Segovia M.D. on 03/19/2019 at 15:52 Approved by: Jani Segovia M.D. on 03/19/2019 at 15:52
[2019-03-19] MEDS: LACTATED RINGERS 1,000 ML 42 ML IV ×2 (12:05→16:24)
[2019-03-19] MEDS: fentaNYL 100 MCG/2 ML INJ 50 MCG IV ×2 (12:08→12:13)
--- NOTE | 2019-03-19 12:21 | SUR.PREOP ---
upon admission pt c/o 07/22 pain, RN SPOKE WITH DR SMITH AND ORDER RECEIVED FOR IV PAIN MEDICATION, PT PLACED ON MONITOR AND OXYGEN, MEDICATED FOR PAIN, REPOSITIONED FOR COMFORT, PT EXPRESSED SOME RELIEF FROM THE PAIN STATING PAIN IS NOW 4/10.
--- NOTE | 2019-03-19 13:59 | PM.PREOP ---
Pre-operative Note Interval Note History & Physical reviewed/Exam performed by Physician: Yes Changes to H&P: No
[2019-03-19] MEDS: CEFAZOLIN 2 GM/100 ML FROZ.PIGGY IV ×2 (14:35→22:56)
--- NOTE | 2019-03-19 15:09 | SUR.OPER ---
Prone on spine table, head in foam head support, padded chest and pelvic supports, gel pad at knees, lower legs supported by pillows; nipples, genitalia and toes free of pressure, arms secured on foam padded arm boards at <90 degrees abduction. Tape over blanket at thigh secured to table.
[2019-03-19] MEDS: BUPIVACAINE 0.25% W/ EPI 30 ML VIAL INJ (15:20)
[2019-03-19] MEDS: BUPIVACAINE LIPOSOME 266 MG/20 ML VIAL INJ (15:20)
--- NOTE | 2019-03-19 16:50 | P.OP_ITS ---
Operative Date/Time/Diagnoses Date of procedure: 03/19/19 Time of procedure: 14:02 Pre-op diagnosis: 1. L5-S1 spondylolisthesis 2. L5-S1 spinal stenosis Post-op diagnosis: same Procedure & Clinicians Procedure: 1. L5-S1 Postero-lateral and posterior interbody fusion 2. L5-S1 interbody cage placement. 3. L5-S1 decompressive laminectomy with bilateral facetecomies 4. L5-S1 Posterior non-segmental instrumentation 5. Utilization of microsurgical technique and operating microscope Same procedure as scheduled: Yes Indications: Patient has been having chronic back pain and worsening lumbar radiculopathy. Patient failed multiple conservative management with worsening pain weakness and numbness in her lower extremity. Patient has been having difficulty performing activity of daily living. After discussing risks benefits of treatment options, patient elected proceed with surgery. Surgeon: Deven Gage Jewelry Repairer: Reina Tripp Click Yes if Unassisted: No Anesthesia Type: General Operative Notes Closure Type: primary Specimen(s): none sent Prosthetic devices, grafts, tissues, transplants, or devices: Globus Revolve sc rews, Rise cage Estimated Blood Loss (mL): 50 Blood products transfused: none Procedure in detail: Patient was seen in the preoperative area. Risks and benefits of the surgery was discussed with the patient. Informed consent was obtained from the patient and placed in the chart. Surgical site was marked. Patient was taken to the operative room. General anesthesia was administered. Prophylactic antibiotic was given to the patient less than 30 min before the incision was made. Patient was placed into a prone position on the Branden table. Patient's back was then prepped and draped in the sterile fashion. Time- out was performed at this time. Using AP and lateral C-arm imaging the interval between L5-S1 was identified and marked on patient's back. A 2 inch incision 2 in from midline was made on the left side first. The fascia was incised in line with skin incision. Globus MARS retractors was placed inside the incision and docked onto the L5 lamina. Using microsurgical technique and operating microscope, a L5 laminectomy and L5-S1 facetectomy was performed using a Kerrison rongeur. The disc space at L5-S1 was identified. And a total diskectomy was performed at L5-S1 level. The endplates were decorticated using a rasp and shaver. The total diskectomy and decortication was performed at L5-S1 level in order to to accomplish a L5-S1 fusion. The local bone from the laminectomy and facetectomy was saved for local bone grafting. After the total diskectomy and decortication was completed, Bio4 bone graft material was combined with local bone that was harvested earlier. Local bone and the Bio4 bone graft was placed into the L5-S1 interbody space along with a expandable cage. The cage was expanded to its maximum height using the torque limiting screwdriver. At this time a mirror image incision was made on the right side. The fascia was incised in line with the skin incision. Globus MARS retractor was inserted and docked onto the L5-S1 posterolateral gutter. Using the power drill, posterior- lateral decortication was performed at L5-S1 level until bleeding cortical bone was identified. The remaining bone grafting material was placed into the L5-S1 posterior lateral gutter he order to accomplish posterolateral fusion at the L5- S1 level. Using the double C-arm technique, pedicle screws were placed into the L5-S1 pedicles bilaterally. This was done by placing the Jamshidi needle into the pedicles, then placing the guidewires over the Jamshidi needle, and finally placing the cannulated screws over the guidewires bilaterally. After the pedicle screws were placed, 2 titanium rods was locked into the heads of the pedicle screws using locking caps and torque limiting screwdriver. After all the hardware was placed, and confirmed with AP and lateral C-arm imaging, the wound was then irrigated with sterile normal saline and packed with Ray-Matthew gauze for 3 min to accomplish hemostasis. After the gauze was removed the deep fascia was closed with #1 Vicryl suture. The subcutaneous layer was closed with 2-0 Vicryl. The skin was closed with skin star. Patient tolerated the procedure well. There were no complications. Complications: none Condition: stable Disposition: PACU Plan for aftercare: Admit to inpatient hospital
[2019-03-19] MEDS: MEPERIDINE 100 MG/ML INJ 75 MG IV (17:01)
[2019-03-19] MEDS: HYDROMORPHONE 2 MG INJ 0.5 MG IV ×4 (17:07→17:36)
[2019-03-19] MEDS: hydrOXYzine 50 MG/ML INJ 25 MG IM (17:18)
--- NOTE | 2019-03-19 17:32 | SUR.PHASEI ---
Pt arrived, shaking, bare hugger on, shakes cintinued, Demerol given, shakes subsided, pain treated with vistaril and dilaidid. no numbness or tingling. maew and follows commands. nasal cannula added after pain meds given.
[2019-03-19] MEDS: OXYCODONE/ACETAMINOPHEN 5/325 TABLET 1 TAB PO (17:42)
[2019-03-19] MEDS: SODIUM CHLORIDE 0.9% 1,000 ML 100 ML IV (19:55)
[2019-03-19] MEDS: DULOXETINE 20 MG CAPSULE PO (20:45)
[2019-03-19] MEDS: DOCUSATE 100 MG CAPSULE PO (20:45)
[2019-03-19] MEDS: GABAPENTIN 300 MG CAPSULE PO (20:46)
[2019-03-19] MEDS: SENNOSIDES 8.6 MG TABLET 17.2 MG PO (20:46)
[2019-03-19] MEDS: OXYCODONE IR 5 MG TABLET 10 MG PO (20:50)
[2019-03-19] MEDS: hydrOXYzine pamoate 25 MG CAPSULE PO (20:50)
[2019-03-19] MEDS: METHOCARBAMOL 500 MG TABLET 750 MG PO (22:55)
[2019-03-20 00:33] VITALS: BP 125/60; PULSE 97; RESP 20; TEMP 36.3; O2SAT 97
--- NOTE | 2019-03-20 00:50 | PC.NURSE ---
2300- Pt POD#0 TLIFT (L5-S1) w/ dressing CDI, denies pain at this time. C/O numbness & tingling on top of L foot (this is baseline for this patient however); moving 1PA w/ FWW. Previous nurse stated pt has already walked around room before working w/ PT & did well. Cont SpO2 in place; pt has his own CPAP in room. Tolerating regular diet; SED's off per pt's request. CMS intact. 2330- Prev RN told this RN pt had not voided last shift. Pt has incont urine in brief x2 since start of my shift, SUPERVISOR FUR FLOOR WORKER aware states to monitor. 0230- Bladder scan completed after another incont episode of urine. 257 mL or urine present, no need for straight cath. IV fluids shut off per verbal order from SUPERVISOR FUR FLOOR WORKER.
[2019-03-20 04:07] VITALS: BP 134/81; PULSE 68; RESP 20; TEMP 36.3; O2SAT 98
[2019-03-20] MEDS: METHOCARBAMOL 500 MG TABLET 750 MG PO (06:22)
[2019-03-20] MEDS: CEFAZOLIN 2 GM/100 ML FROZ.PIGGY IV (06:22)
[2019-03-20] MEDS: PANTOPRAZOLE 40 MG TABLET PO (06:23)
[2019-03-20 07:35] VITALS: BP 134/75; PULSE 65; RESP 18; TEMP 36.8; O2SAT 98
[2019-03-20] MEDS: CHOLECALCIFEROL (VITAMIN D3) 1,000 UNIT TABLET 4000 UNIT PO (08:54)
[2019-03-20] MEDS: LORATADINE 10 MG TABLET PO (08:55)
[2019-03-20] MEDS: GABAPENTIN 300 MG CAPSULE PO (08:55)
[2019-03-20] MEDS: DOCUSATE 100 MG CAPSULE PO (08:55)
[2019-03-20] MEDS: DULOXETINE 20 MG CAPSULE PO (08:56)
[2019-03-20] MEDS: LOSARTAN 25 MG TABLET PO (08:56)
[2019-03-20] MEDS: METOPROLOL ER 50 MG TABLET PO (09:01)
[2019-03-20] MEDS: OXYCODONE IR 5 MG TABLET PO (10:11)
--- NOTE | 2019-03-20 10:16 | PM.PNPO.1 ---
Subjective Date Patient Seen: 03/20/19 Time Patient Seen: 10:16 Interval history: Patient is POD#1 s/p L5-S1 TLIF. He is doing well post operatively. Pain is well controlled with oxycodone. He has not yet mobilized with PT but has moved from bed to chair. Voiding independently. Denies chest pain, shortness of breath. Exam Vital Signs (past 8 hours): - 03/20/19 04:07 03/20/19 07:35 Temperature 97.4 F L 98.2 F Pulse Rate 68 65 Respiratory Rate 20 18 Blood Pressure 134/81 134/75 Pulse Oximetry 98 98 Oxygen Delivery Method CPAP Oxygen Flow Rate 2 Narrative Exam Narrative: 48 year old male resting comfortably in chair in no acute distress. Alert and oriented. Dressing in place over lumbar spine is clean, dry, and intact with no shadow drainage. Intact motor and sensation to light touch in bilateral lower extremities with soft, compressible calves. Assessment & Plan Post-op Postoperative Procedures Operation Date: 03/19/19 13:45 Actual Procedures Side Surgeon p L5-S1 TLIF Deven Gage MD Patient is doing well post operatively. Goals for today are to mobilize with physical therapy and continue pain control. Quality VTE Deep Vein Thrombosis/Pulmonary Embolism Present on Admission: No
--- NOTE | 2019-03-20 10:20 | CM.DANOTE ---
DCP/Assessment: Reviewed chart. Patient is a 48yr old male admitted to [facility] for L5-S1/Lami performed on 03-19-[address] Gage. PCP is Dr. Parra at [facility]. Primary payor is 1)[employer]. Met with patient explained CM/SW role. Patient alert and oriented, resting in bed comfortably at time of visit. Patient reports that he plans to d/c home when medically stable. Patient resides with has spouse/Cici and does not anticipate any d/c planning needs. Notified patient that CM team will continue to follow. Patient appreciative. Patient completely I with all ADL's prior to admit. Therapy evaluation pending. P: Anticipate home when stable. PAULA Logan Discharge Planning/Care Management Advanced directive, confirm from FAMILY Start: 03/19/19 18:43 Freq: Q24H Status: Active Protocol: Document 03/19/19 18:43 AKP (Rec: 03/19/19 19:48 AKP [id number]) Advance Directive, confirm on record Time 19:48 Person contacted Copy received No CM Discharge Assessment Start: 03/20/19 10:18 Freq: Status: Active Protocol: Document 03/20/19 10:18 KJS (Rec: 03/20/19 10:20 KJS [id number]) Discharge Planning Assessment Assigned Health Inspector Food PAULA Logan Contact Information Erica Park (spouse) [phone] Advance Directives? Yes: Living Will Advance Directives on File No History Provided By Patient Medical Record Prior Living Arrangements House Household Members spouse children Type of transporation used prior to Drives own vehicle admit Independent with ADL's Yes Is patient alert and oriented? Yes Caregiver for Another No DME Already Rented / Owned FWW / Walker Barriers to Discharge No Discharge Plan Home Transportation Arrangement Family to provide transporation. Additional Comment PT evaluation pending Whiteboard Updated in Patient Room with Yes name and ext. # of Health Inspector Food Review Status In Process Next Review Type Continued Stay Review Pre-Anesthesia Assessment Start: 03/15/19 08:42 Freq: Status: Complete Protocol: Document 03/15/19 08:42 CAB (Rec: 03/15/19 09:34 CAB [id number]) Pre-Anesthesia Assessment Patient Information Reviewed Via Phone Assessment Assessment Completed With Patient H&P Completed Within 30 Days Yes Diagnostic Results BMP/CMP CBC Comment Labs @ [facility] 03/10/19, surgeon did not order EKG Primary Care Provider Michelle Parra Seen Specialist in Last 12 Months Yes Specialist Seen Emergency Orthopedist Primary Language Afghan Poultry Scalder Required No Height 177.8 cm Weight 95.254 kg Body Mass Index (BMI) 30.1 Hearing Ability Normal Visual Impairment No Limitations Visual Assist None Dentition Type Teeth, Natural Present Barriers to Learning None Other Aids Yes: CPAP Hx Anesthesia Reactions Yes: says I get agitated when I wake up Hx Family Anesthesia Reaction No Hx Malignant Hyperthermia No Hx Blood Transfusions No Anesthesia Review Requested No Sterile Processing Tech No alcohol intake current alcohol intake frequency holidays/special occasions only Smoking Status Never smoker Substance Use Type does not use Pain Present Pain Reported Musculoskeletal Symptoms Abnormal Gait Back Pain Difficulty Walking Joint Pain Limited Range of Motion Muscle Cramps Muscle Spasms Numbness Radiating Pain into Limb Tingling History of Falling (Recent or History of No ) Patient is completely paralyzed or No completely immobile Mental Status Oriented to own ability Is patient on oxygen? No Does patient have HERR/SOB No Hx Sleep Apnea Yes CPAP/BIPAP use prescribed and used routinely Will Bring CPAP/BIPAP DOS Yes Currently Taking a Beta Truman Yes: Metoprolol Can You Climb a Flight of Stairs Without Yes SOB Hx Chest Pain No Hx SOB No Hx Syncope or Dizziness No Anti-Coagulant Therapy No Has a Spinning Frame Fixer No Cardiac Testing No Hx Pacemaker/ICD No Pacemaker Rep Required? No Cardiac Clearance Received Not Applicable Diet Type At Home Regular dysphagia No Urinary Catheter Present No Hx Urinary Self Catheterization No Diabetes No Hx Drug Resistant Organism No Presence of External or Internal Medical Yes: CPAP Devices Have you traveled outside the [facility] in the last 30 days? Marital Status Lives With spouse children Prior Living Arrangements House Number of Floors (Floors) One Floor Support System Child/Children Spouse Does the Patient Have Assistance After Yes Surgery Patient Discharge Plan Description Return Home Comment Pt advised overnight length of stay per surgeon's office Feels Safe in Current Environment Yes Been Physically Hurt or Threatened By a No Person in Current Environment Do you have thoughts of harming yourself None or others? Are you currently considering suicide? No Do you have a plan to hurt yourself or No Plan others? Do You Have Any Spiritual Beliefs That No May Affect Your HC Choices? Do You Have Any Cultural Practices That No May Affect Your HC Choices? Spiritual Referral None Who Can We Speak to About Patient's Care Family, friends Identifying Code for Release of Patient Declines to issue Information Health Care Proxy/Next of Kin Erica () Health Care Proxy Emergency Contact Name Erica () Emergency Contact Advance Directives? Yes Advance Directives on File No Requested Patient Bring Advanced Yes Directives DOS Power of Die Setter No PAC Instructions Bring CPAP/BIPAP Durable medical equipment Medications to take/avoid Nasal antibiotic No ETOH/petroleum product on skin DOS NPO Post-op transportation Pre-surgical wash Sturdy shoes/comfortable clothes Do not bring valuables and remove jewelry
--- NOTE | 2019-03-20 10:22 | PT.IIE ---
Current Diagnoses Spondylolisthesis, lumbosacral region (03/19/19) Spinal stenosis, lumbar region without neurogenic claudication (03/19/19) Surgery Performed Operation Date: 03/19/19 13:45 Actual Procedures p L5-S1 TLIF - Deven Gage MD Surgical History (Last Updated 03/15/19 @ 09:19 by Meghana Dye, RN) History of carpal tunnel release (Acute) History of nasal surgery (Acute) Hx of tonsillectomy (Acute) Medical History (Last Updated 03/15/19 @ 09:19 by Meghana Dye RN) Back pain (Acute) Cervical herniated disc (Acute) GERD (gastroesophageal reflux disease) (Acute) HTN (hypertension) (Acute) Numbness and tingling (Acute) Sciatica (Acute) Seasonal allergies (Acute) Sleep apnea (Acute) Walking pneumonia (Acute ~2002) Septic arthritis of hip (Resolved ~2005) Physical Therapy Inpatient Evaluation/Re-Eval M1 PT/OT-IP Prior Functional Status Start: 03/20/19 10:44 Freq: NEEDED Status: Active Protocol: Document 03/20/19 10:22 RCC (Rec: 03/20/19 10:51 [facility] [id number]) Medical Review Prior Functional Status Medical History Reviewed Yes Mobility and Gait indep community ambulator without device Activities of Daily Living and IADL's indep I/ADLs Social History Household Members spouse children Living Arrangements House Number of Floors (Floors) One Floor Number of Stairs To Enter/Railing? no steps to enter/exit Home Environment Standard Height Toilet Walk in Shower Home Equipment Front Wheel Walker Additional Social History Comment Pt underwent L5-S1 TLIF on 03/19 M2 PT-IP Current Condition Start: 03/20/19 10:44 Freq: NEEDED Status: Active Protocol: Document 03/20/19 10:22 RCC (Rec: 03/20/19 10:51 [facility] [id number]) Physical Therapy Current Condition Current Condition Evaluation Date 03/20/19 Treatment Diagnosis L5-S1 TLIF 03/19/19, impaired activity tolerance Precautions Lumbar Precautions Log Roll No Twisting Limit Bending Lifting Restriction of 10 lbs Gait Belt above Incisional Area M3 PT-IP Subjective Start: 03/20/19 10:44 Freq: NEEDED Status: Active Protocol: Document 03/20/19 10:22 RCC (Rec: 03/20/19 10:51 [facility] [id number]) Subjective Physical Therapy Visit Type Type Initial Evaluation Visit Start Time 10:22 Visit Stop Time 10:45 Total Visit Minutes 23 Number of LINOLEUM PRINTER Visits 0 Physical Therapy Visit Comments Patient Comments pt feeling pretty good Patient Goals he would like to d/c home today Therapy Pain Assessment Pain When Pain Assessed At Rest Pain Present Pain Present Pain Reported Location Back Intensity 4 Scale Used Numeric (1 - 10) M4 PT-IP Mobility and Gait Start: 03/20/19 10:44 Freq: NEEDED Status: Active Protocol: Document 03/20/19 10:22 [facility] (Rec: 03/20/19 10:51 [facility] [id number]) PT-Transfer Assessment Sit to and From Stand Sit to and from Stand Independent Equipment Transfer Assistive Device Gait Belt Transfers Transfer Destination Chair Transfer Technique Stand Step Pivot Transfer Ability Level of Assist Standby Assistance Gait Assessment Gait Gait Assistance Required: Standby Assistance Distance (Feet) 75 Assistive Devices Assistive Device Gait Belt Front Wheeled Walker Gait Deviations General Gait Pattern Antalgic Decreased Stride Length Factors Limiting Gait Function Factors Limiting Gait Function Decreased Activity Tolerance Decreased Sensation Decreased Strength Pain PT-Balance Assessment Sitting Balance and Reactions Static Sitting Balance Ability Good Dynamic Sitting Balance Ability Good Standing Balance and Reactions Static Standing Balance Ability Good Dynamic Standing Balance Ability Good Device Used FWW M5 PT-IP Objective Assessments Start: 03/20/19 10:44 Freq: NEEDED Status: Active Protocol: Document 03/20/19 10:22 [facility] (Rec: 03/20/19 10:51 [facility] [id number]) Orientation Orientation/Cognition Level of Alertness Alert Orientation Name Age Birthday Month Date Year Day of Week Place Situation Gross Range of Motion Lower Extremity ROM Assessment Within Functional Limits Strength Lower Extremity Strength Ankle DF 4/5 L and 5/5 R Sensation Assessment Sensation Gross Sensation Left LE Impaired Sensation Description [employer] M6 PT-IP Treatment Start: 03/20/19 10:44 Freq: NEEDED Status: Active Protocol: Document 03/20/19 10:22 [facility] (Rec: 03/20/19 10:51 [facility] [id number]) Physical Therapy Treatment Exercises Exercises Ankle Pumps Education Education Provided Precautions Post-Op Packet Safety M7 PT-IP Assessment and Plan Start: 03/20/19 10:44 Freq: NEEDED Status: Active Protocol: Document 03/20/19 10:22 [facility] (Rec: 03/20/19 10:51 [facility] [id number]) PT Summary Assessment and Plan Potential Rehabilitation Potential Good Status of Condition at Evaluation Stable Summary Impairments Pain Strength Sensation Activity Tolerance Progress Towards Goals Safe For Discharge Assessment Summary POD #1 L5-S1 TLIF. Pt did not require assistance with sit<-> stand, and able to ambulate 75 ft with SBA and a FWW. He has a FWW for home use, and support at home as needed. CG training will need to be performed, but pt likely to d/ c POD #1 or 2 after family training. Goals Bed Mobility Goal Independent Transfer Goal Independent Gait Goal Independent Gait Distance 150 Other Goals up/down 3 steps with unilat rail and SBA Days to Meet Goals 3 Frequency of Treatment Frequency Of Treatment Twice a Day Treatment Plan Physical Therapy Treatment Plan Bed Mobility Training Gait Training Post Op Education Discharge Planning Neuromuscular Re-ed Other Recommendations and Next Treatment log roll, review precautions, Focus CG training- gait, bed mobility, stairs Recommendations To Nursing Amount of Assist Needed Standby Assistance Discharge Recommendations PT Discharge Recommendations Home with Assistance
--- NOTE | 2019-03-20 10:41 | P.DS_ITS ---
History of Present Illness Date Patient Seen: 03/20/19 Time Patient Seen: 10:41 Chief complaint: Translaminar Interbody Fusion/Laminotomy Narrative: See HPI in chart Discharge Providers Date of admission: 03/19/19 11:33 Discharge Date: 03/20/19 Primary care physician: Michelle Parra DO Consults: 03/19/19 12:18 Consult to Respiratory Therapy Evaluate & Treat Comment: Physician Instructions: Evaluate and treat 03/19/19 18:33 Consult to Occupational Therapy Evaluate & Treat Comment: Physician Instructions: Evaluate and treat Consult to Physical Therapy Evaluate & Treat Comment: Physician Instructions: Evaluate and Treat Discharge provider: Romina Gómez PA-C Summary Discharge Diagnosis: s/p L5-S1 TLIF Hospital Course: Patient has been having chronic back pain and worsening lumbar radiculopathy. Patient failed multiple conservative management with worsening pain weakness and numbness in her lower extremity. Patient has been having difficulty performing activity of daily living. After discussing risks benefits of treatment options, patient elected proceed with surgery. He was taken to the operating room and underwent a L5-S1 TLIF with no complications. He has progressed well in the post operative period. His pain has been well controlled with Oxycodone and Vistaril. He has mobilized with physical therapy who feel he is ready for discharge today. He is voiding independently and tolerating a diet. His is present at home as a caregiver. He will be discharged with home supply of Oxycodone and Vistaril and has appropriate outpatient follow up scheduled. Status at Discharge Cognitive/behavioral status at discharge: oriented Functional status at discharge: uses cane/walker Overall status at discharge: patient is progressing back to baseline Exam Vital Signs (past 8 hours): - 03/20/19 04:07 03/20/19 07:35 Temperature 97.4 F L 98.2 F Pulse Rate 68 65 Respiratory Rate 20 18 Blood Pressure 134/81 134/75 Pulse Oximetry 98 98 Oxygen Delivery Method CPAP Oxygen Flow Rate 2 Narrative Exam Narrative: 48 year old male resting comfortably in chair in no acute distress. Alert and oriented. Dressing in place over lumbar spine is clean, dry, and intact with no shadow drainage. Intact motor and sensation to light touch in bilateral lower extremities with soft, compressible calves. Discharge Plan Discharge Plan Patient Disposition: Home Discharge comment: Home after afternoon PT Discharge Med Rec/Prescriptions Prescriptions: New acetaminophen 325 mg Tablet 650 mg PO Q6HR PRN (Reason: Pain, Mild (1-3)) Qty: 60 RF: 0 oxycodone 5 mg Tablet 5 mg PO Q4-6H PRN (Reason: Pain, Moderate (4-6)) Qty: 40 RF: 0 hydroxyzine pamoate 25 mg Capsule 25 mg PO Q4HR PRN (Reason: Nausea And Vomiting) Qty: 30 RF: 0 Continued metoprolol succinate 50 mg tablet extended release 24 hr 1 tab PO DAILY RF: 0 losartan 25 mg tablet 1 tab PO DAILY RF: 0 omeprazole 20 mg capsule,delayed release(DR/EC) 2 tab PO DAILY RF: 0 loratadine 10 mg tablet 1 tab PO DAILY RF: 0 cholecalciferol (vitamin D3) [Vitamin D3] 2,000 unit Capsule 4,000 unit PO DAILY RF: 0 krill oil 500 mg Capsule 1 tab PO DAILY RF: 0 methocarbamol 750 mg Tablet 750 mg PO Q8H RF: 0 gabapentin 300 mg Capsule 300 mg PO BID RF: 0 oxymetazoline [Afrin Sinus (oxymetazoline)] 0.05 % [place],Non-Aerosol 1 - 2 spray INTRANASAL Q12H PRN (Reason: Sinus problems) RF: 0 duloxetine 20 mg Capsule,Delayed Release(Dr/Ec) 20 mg PO BID RF: 0 Discontinued meloxicam 15 mg Tablet 15 mg PO DAILY RF: 0 oxycodone-acetaminophen 5-325 mg Tablet 1 tab PO Q4-6H PRN (Reason: Pain) RF: 0 Follow up/Referrals: Deven Gage MD [Physician] - Provider Discharge Instructions Diet: Diet as Tolerated Activity: Weight bear as tolerated. No bending, lifting or twisting. Cold/Heat Therapy: Ice packs as needed. Skin/Wound/Dressing Care Report to your healthcare provider any signs of infection, such as:: chills, fever, unusual drainage and unusual redness Dressing: Leave dressing in place, will be removed at post operative visit. Notify the office of excessive staining of the dressing. Visit Report/Discharge Packet Instructions: DI for Transforaminal Lumbar Interbody Fusion Discharge Data Primary Care Provider: Michelle Parra Attending Provider: Deven Gage Admit Date/Time: 03/19/19 11:33 Quality VTE Deep Vein Thrombosis/Pulmonary Embolism Present on Admission: No
--- NOTE | 2019-03-20 13:30 | PT.IPTN ---
Current Diagnoses Spondylolisthesis, lumbosacral region (03/19/19) Spinal stenosis, lumbar region without neurogenic claudication (03/19/19) Surgery Performed Operation Date: 03/19/19 13:45 Actual Procedures p L5-S1 TLIF - Deven Gage MD Physical Therapy Treatment Note M2 PT-IP Current Condition Start: 03/20/19 10:44 Freq: NEEDED Status: Active Protocol: Document 03/20/19 10:22 [facility] (Rec: 03/20/19 10:51 [facility] [id number]) Physical Therapy Current Condition Current Condition Evaluation Date 03/20/19 Treatment Diagnosis L5-S1 TLIF 03/19/19, impaired activity tolerance Precautions Lumbar Precautions Log Roll No Twisting Limit Bending Lifting Restriction of 10 lbs Gait Belt above Incisional Area M3 PT-IP Subjective Start: 03/20/19 10:44 Freq: NEEDED Status: Active Protocol: Document 03/20/19 13:30 [facility] (Rec: 03/20/19 14:32 [facility] [id number]) Subjective Physical Therapy Visit Type Type Treatment Note Visit Start Time 13:30 Visit Stop Time 13:50 Total Visit Minutes 20 Number of [employer] Visits 0 Physical Therapy Visit Comments Patient Comments pt wants to go home today, pain slightly higher this p.m. M4 PT-IP Mobility and Gait Start: 03/20/19 10:44 Freq: NEEDED Status: Active Protocol: Document 03/20/19 13:30 [facility] (Rec: 03/20/19 14:32 [facility] [id number]) PT-Bed Mobility Assessment Rolling Type of Rolling Log Rolling Level of Assist Independent Supine to Sit Supine to Sit Independent Sit to Supine Sit to Supine Independent Scooting Scooting to Edge of Bed Independent PT-Transfer Assessment Sit to and From Stand Sit to and from Stand Independent Equipment Transfer Assistive Device Gait Belt Front Wheeled Walker Transfers Transfer Destination Chair Transfer Technique Stand Step Pivot Transfer Ability Level of Assist Standby Assistance Gait Assessment Gait Gait Assistance Required: Standby Assistance Distance (Feet) 150 Assistive Devices Assistive Device Gait Belt Front Wheeled Walker Gait Deviations General Gait Pattern Antalgic Decreased Stride Length Factors Limiting Gait Function Factors Limiting Gait Function Decreased Activity Tolerance Pain Stair Climbing Assessment Evaluation Level of Assist On Stairs Standby Assistance Devices Stair Climbing Assistive Devices Left Railing Technique/Endurance Stair Climbing Direction Ascend and Descend Stair Climbing Technique Step to Step Number of Steps Climbed 3 Query Text: Stair Climbing Set # Repetitions (reps) 1 Comments Stair Climbing Comments VC for sequencing M5 PT-IP Objective Assessments Start: 03/20/19 10:44 Freq: NEEDED Status: Active Protocol: Document 03/20/19 10:22 RCC (Rec: 03/20/19 10:51 [facility] [id number]) Orientation Orientation/Cognition Level of Alertness Alert Orientation Name Age Birthday Month Date Year Day of Week Place Situation Gross Range of Motion Lower Extremity ROM Assessment Within Functional Limits Strength Lower Extremity Strength Ankle DF 4/5 L and 5/5 R Sensation Assessment Sensation Gross Sensation Left LE Impaired Sensation Description [place] M6 PT-IP Treatment Start: 03/20/19 10:44 Freq: NEEDED Status: Active Protocol: Document 03/20/19 10:22 RCC (Rec: 03/20/19 10:51 [facility] [id number]) Physical Therapy Treatment Exercises Exercises Ankle Pumps Education Education Provided Precautions Post-Op Packet Safety M7 PT-IP Assessment and Plan Start: 03/20/19 10:44 Freq: NEEDED Status: Active Protocol: Document 03/20/19 13:30 [facility] (Rec: 03/20/19 14:32 [facility] [id number]) PT Summary Assessment and Plan Summary Progress Towards Goals Safe For Discharge Assessment Summary POD #1 TLIF. Pt able to manage stairs with SBA, ambulate 150 ft with FWW and SBA, and is indep with safe log roll technique. Pt's spouse present during session, he is cleared to d/c when medically stable. Goals Bed Mobility Goal Independent Transfer Goal Independent Gait Goal Independent Gait Distance 150 Other Goals up/down 3 steps with unilat rail and SBA Days to Meet Goals 3 Frequency of Treatment Frequency Of Treatment Twice a Day Treatment Plan Other Recommendations and Next Treatment gait as tolerated Focus Recommendations To Nursing Amount of Assist Needed Standby Assistance Discharge Recommendations PT Discharge Recommendations Home with Assistance
== END 2019-03-20 14:53 | disposition home or self-care (01) | DRG 455 ==
PROVIDERS: Admitting Provider Orthopaedic Surgery Orthopaedic Surgery of the Spine; PCP Family Medicine; Visit Provider Orthopaedic Surgery Orthopaedic Surgery of the Spine
PROC: 0SG30AJ Fusion of Lumbosacral Joint with Interbody Fusion Device, Posterior Approach, Anterior Column, Open Approach (ICD-10-PCS; principal; 2019-03-19 13:45)
DX: M48.07 Spinal stenosis, lumbosacral region (principal); M48.061 Spinal stenosis, lumbar region without neurogenic claudication; M43.17 Spondylolisthesis, lumbosacral region; I10 Essential (primary) hypertension
CPT/HCPCS: 72100; 76000; 97116; 97161; 97530; C1776; C9290; J0330; J0690; J1100; J1170; J2175; J2405; J2704; J3010; J3410

== ENCOUNTER → 2019-10-07 15:24 | Outpatient (CLI) | payer OTHER, SELFPAY ==
[2019-03-19 18:38] VITALS: BMI 30.1
--- NOTE | 2019-10-07 | DI.ECHO.S_ITS ---
[place] [facility]---------+ [facility] +---------+ : : [address] : : : : [id number] : : : : Phone: [phone]+ Echocardiogram Report + + :Name: ARELI ZAMAN Study Date: 10/07/2019 Height: 70 in : :[facility] Weight: 200 lb : : Gender: Male BSA: 2.1 m2 : :: 1970 Age: 49 yrs BP: 122/86 mmHg: :Reason For Study: Fam History of CAD : : Performed By: Marcelo Harry : :Referring: ELISSA ASENCIO M : + + Interpretation Summary The left ventricle is normal in size. The ejection fraction is estimated to be 60-65%. The right ventricle is normal size. The right ventricular systolic function is normal. No significant valvular pathology seen. Procedure: A two-dimensional transthoracic echocardiogram with color flow and Doppler was performed. The study quality was technically good. There is no prior echocardiogram noted for this patient. The patient was in sinus bradycardia with heart rates between 45-53 bpm during the exam. Left Ventricle: The left ventricle is normal in size. There is normal left ventricular wall thickness. There is no thrombus. Left ventricular systolic function is normal. The ejection fraction is estimated to be 60-65%. Left ventricular wall motion is normal. MV E/A: 1.5 Med Peak E' Johny: 7.8 cm/sec E/E' med: 11.6. Right Ventricle: The right ventricle is normal size. The right ventricular systolic function is normal. Atria: The left atrial size is normal. The right atrium is borderline dilated. Right atrial size is normal. The interatrial septum is intact with no evidence for an atrial septal defect. Mitral Valve: The mitral valve is normal in structure and function. There is no mitral regurgitation noted. Aortic Valve: The aortic valve is trileaflet. The aortic valve opens well. There is discrete nodular thickening of the right coronary cusp. There is no aortic valve stenosis. No aortic regurgitation is present. Tricuspid Valve: The tricuspid valve is normal in structure and function. No tricuspid regurgitation. Pulmonic Valve: The pulmonic valve is not well visualized. There is trace pulmonic regurgitation. Great Vessels: The aortic root is normal size. The dimensions of the ascending aorta are normal. The pulmonary artery is normal size. The IVC is of normal diameter and collapses greater than 50% with a sniff. This suggests a low right atrial pressure of 3 mm Hg. Pericardium/ Pleura There is no pericardial effusion. There is no pleural effusion. MMode/2D Measurements & Calculations LVIDd: 4.5 cm LVOT diam: 2.1 cm LVIDs: 2.8 cm Ao root diam: 3.5 cm FS: 36.7 % Aortic Jxn: 2.9 cm EPSS: 0.51 cm asc Aorta Diam: 3.5 cm IVSd: 1.1 cm LVPWd: 1.0 cm LV diana. diameter/BSA (cm/m^2): 2.2 LV sys. diameter/BSA (cm/m^2): 1.4 LA A2 area: 15.4 cm2 RA long axis: 5.2 cm LA A4 area: 15.1 cm2 RA area: 18.3 cm2 LA length (vol): 4.9 cm RA vol: 54.2 ml LA vol: 39.9 ml RA : 26.0 ml/m2 LA vol index: 19.1 ml/m2 TAPSE: 2.0 cm Doppler Measurements & Calculations Ao V2 max: 129.7 cm/sec LVOT Max Johny: 113.2 cm/sec Ao V2 mean: 96.4 cm/sec LV V1 max P.1 mmHg Ao max P.7 mmHg LV V1 VTI: 24.8 cm Ao mean P.0 mmHg SEBASTIAN(I,D): 3.2 cm2 Ao V2 VTI: 27.8 cm SEBASTIAN(V,D): 3.2 cm2 sev ratio: 0.89 SEBASTIAN indexed to BSA (cm^2/m^2): 1.5 MV E max johny: 90.8 cm/sec PA V2 max: 73.9 cm/sec MV A max johny: 60.9 cm/sec PA V2 mean: 60.8 cm/sec MV E/A: 1.5 PA mean P.5 mmHg Med Peak E' Johny: 7.8 cm/sec PA Accel Time: 0.15 sec E/E' med: 11.6 Lat Peak E' Johny: 14.4 cm/sec E/E' lat: 6.3 E/e' average: 9.0 MV dec time: 0.23 sec SV(LVOT): 89.7 ml Reading Physician:01:11 PM
== END ==
PROVIDERS: PCP Family Medicine; Visit Provider Family Medicine
DX: Z13.6 Encounter for screening for cardiovascular disorders (principal); Z82.49 Family history of ischemic heart disease and other diseases of the circulatory system
CPT/HCPCS: 93306

== ENCOUNTER → 2020-04-19 09:21 | Outpatient (CLI) | payer OTHER, SELFPAY ==
[2019-03-19 18:38] VITALS: BMI 30.1
--- NOTE | 2020-04-19 | DI.CT.S_ITS ---
PROCEDURE: CT SINUS SCREEN WO CON INDICATIONS: Other chronic sinusitis TECHNIQUE: Noncontrast 3.0 mm axial images acquired from the frontal sinuses to the mid-sella, with coronal and sagittal reformats. For radiation dose reduction, the following was used: automated exposure control, adjustment of mA and/or kV according to patient size. COMPARISON: None. FINDINGS: Image quality: Excellent. Maxillary Sinuses: Portions of the medial matamoros of the maxillary sinuses have been. There is mild to moderate right-sided and mild right-sided mucosal thickening seen inferiorly. Ethmoid Air Cells: Moderate mucosal thickening is seen within the ethmoid air cells, particularly anteriorly. Portions of the ethmoid air cell bony septations have been removed. Sphenoid Sinuses: There is moderate left-sided and mild right-sided mucosal thickening seen. No significant bony abnormality is seen. Frontal Sinuses: No bony remodeling or destruction. Mild to moderate mucosal thickening is seen inferiorly and medially. Ostiomeatal Complexes: Removed. Miscellaneous: Visualized intra-orbital contents are normal. There is partial paradoxical curvature of the middle turbinates. There is a small left sided barbara bullosa also seen. There is minimal leftward nasal septal deviation. IMPRESSION: Prior postoperative change, bilateral antrectomy, with removal of portions of the medial matamoros of the maxillary sinuses are extensively ethmoid air cell septations. Widespread paranasal sinus disease is seen, which is overall most prominent within the ethmoid air cells. Dictated by: Jani Segovia M.D. on 04/19/2020 at 8:51 Approved by: Jani Segovia M.D. on 04/19/2020 at 8:54
== END ==
PROVIDERS: PCP Family Medicine; Referring Provider Nurse Practitioner Family; Visit Provider Nurse Practitioner Family
DX: J32.8 Other chronic sinusitis (principal)
CPT/HCPCS: 70486

== ENCOUNTER → 2021-05-09 06:46 | Outpatient (CLI) | payer OTHER, SELFPAY ==
[2019-03-19 18:38] VITALS: BMI 30.1
--- NOTE | 2021-05-09 | DI.MRI.S_ITS ---
PROCEDURE: MR HIP LT WO CON INDICATIONS: Pain in unspecified hip TECHNIQUE: Noncontrast coronal T1 spin echo and STIR through the bony pelvis. Coronal and axial T2 fast spin echo with fat saturation, sagittal T1 spin echo, and oblique axial T2 fast spin echo with fat saturation through the hip. COMPARISON: None. FINDINGS: Image quality: Excellent. Bones and joints: Asymmetric moderate left hip joint osteoarthritic changes are seen. No marrow edema. No intraosseous lesions or fractures. No avascular necrosis of the femoral heads. Prominence of left femoral head neck junction is noted which can be seen associated with CAM type femoral acetabular impingement. The visualized lower lumbar spine appears normally aligned. Tendons and ligaments: The gluteus medius and minimus tendinosis at the level of greater trochanter is seen, without associated muscle atrophy. The nearby proximal iliotibial band also appears intact. The iliopsoas tendon appears intact, without adjacent bursal fluid collections or evidence for impingement syndrome. The origin of the hamstring tendon is intact at the ischial tuberosity, as well as the associated sacrotuberous ligament. The straight and reflected heads of the rectus femoris muscle origin appear intact, as well as the conjoint tendon. The ligamentum teres appears intact where visualized. Labrum and cartilage: Thinning of articulating cartilages in femoral head is noted. There is signal abnormality and fraying of superior anterior left hip labrum suggestive of focal labral tear. The alpha angle of the femur is within normal limits at less than 55 degrees. Soft tissues: Visualized muscles demonstrate normal bulk and internal signal. Quadratus femoris muscle demonstrates no internal edema to suggest ischiofemoral impingement. The proximal sciatic neurovascular bundle appears normal adjacent to the hamstring tendons. No free pelvic fluid. Bladder wall thickness is normal. Genitourinary structures and bowel loops appear normal where visualized. IMPRESSION: 1. Asymmetric moderate left hip joint osteoarthritis. No fracture or dislocation. No evidence of avascular necrosis of femoral head. 2. Prominent superior anterior left femoral head neck junction with subcortical cyst/edema which can be seen associated with CAM type femoral acetabular impingement. 3. Suggestion of superior anterior left hip labral tear. 4. Mild tendinosis involving distal left gluteus medius and minimus at the level of greater trochanter. No other muscle or tendon signal abnormality. Dictated by: Kyle Pope M.D. on 05/09/2021 at 9:05 Approved by: Kyle Pope M.D. on 05/09/2021 at 9:07
== END ==
PROVIDERS: PCP Family Medicine; Referring Provider Family Medicine; Visit Provider Family Medicine
DX: M16.12 Unilateral primary osteoarthritis, left hip (principal); M25.559 Pain in unspecified hip; Z98.890 Other specified postprocedural states
CPT/HCPCS: 73721